=== PATIENT | female | born 1970 | race Caucasian/White ===

== ENCOUNTER 2018-04-04 08:38 | Outpatient (CLI) | payer OTHER ==
--- NOTE | 2018-04-04 12:09 | MRI ---
MRI LEFT ANKLE PERFORMED WITHOUT CONTRAST ENHANCEMENT: HISTORY: Approximately three weeks ago, the patient said she was pushing off her left foot and ankle and felt a pop. Complaining of left ankle pain and swelling every since. FINDINGS: The Achilles tendon is intact. It shows fairly minimal tendinopathy change. The anterior extensor tendon group is normal in appearance. Posterior tibialis, flexor digitorum longus, and flexor hallucis longus tendons are intact. The peroneus longus and brevis tendons are intact. There are some trace tenosynovitis changes seen o f the peroneus brevis tendon. I do not see any signs of a slit tear. The plantar fascia is intact. The sinus tarsi region appears unremarkable, other than some minimal f luid seen laterally. There are marrow edema changes, which involve the more distal portion of the calcaneus. There is junior e edema change and what appears to be atrophy of the quadratus planti muscle, along the medial side o f the calcaneus. In addition, there are edema changes in the region of the spring ligament complex, with some fluid or cystic change near the plantar calcaneal navicular ligament. Specifically, the ch anges are near its calcaneal attachment. The edema changes are also very close to this area, and fernando nges would suggest a spring ligament complex injury. Lisfranc ligament appears intact. Some mild subcutaneous edema change is seen around the ankle. The ankle joint shows a tiny focus of marrow edema change along the lateral edge of the talus. I do not see any articular cartilage loss in this area. There does appear to be some edema change along t he anterior edge of the tibia, and there is edema change associated with the anterior aspect of the c apsule, which could indicate that there has been some type of anterior capsular injury. There is no significant ankle joint effusion seen. IMPRESSION: 1. Evidence of some bone marrow edema change involving the more distal portion of the calcaneus, sug gesting bone contusion. This is associated with edema change in the region of the spring ligament co mplex, suggesting spring ligament injury. In addition, there is some edema change and atrophy of the quadratus planti muscle, which is also in this region. 2. Edema changes also seen along the anterior margin of the capsule of the ankle joint. This could indicate that there has been a capsular injury. Changes extend directly anterior to the tibia, but a lso extend toward the anterolateral gutter region. I do not see any underlying ligamentous injury in this area. POS: BRAULIO
== END 2018-04-04 08:39 | disposition home or self-care (01) ==
LOC: BICMRI 08:38
DX: M25.572 Pain in left ankle and joints of left foot (principal); M79.89 Other specified soft tissue disorders

== ENCOUNTER 2018-05-14 08:40 | Emergency (ER) | payer OTHER | END 2018-05-14 10:43 | disposition home or self-care (01) | LOC: ERS 08:40 | DX: T78.40XA Allergy, unspecified, initial encounter (principal); I10 Essential (primary) hypertension; F41.9 Anxiety disorder, unspecified | CPT/HCPCS: 99283 ==

== ENCOUNTER 2024-05-23 08:45 | Outpatient (CLI) | payer OTHER | END 2024-05-23 08:46 | disposition home or self-care (01) | LOC: PET 08:45 | PROVIDERS: ATTEND Internal Medicine | DX: C34.31 Malignant neoplasm of lower lobe, right bronchus or lung (principal) | CPT/HCPCS: 78815; A9552 ==